=== PATIENT | male | born 1965 | race Caucasian/White ===

== ENCOUNTER 2023-02-14 06:46 | Day surgery (SDC) | payer OTHER ==
[~2023-02-14 06:46] MED LIST: Lactated Ringers 1,000 ML IV SCH
[2023-02-14] MEDS ORDERED: HYDROmorphone 1 MG/ML Syringe IVPUSH PRN (07:11)
[2023-02-14] MEDS ORDERED: Morphine 2 MG/ML SYRINGE IVPUSH PRN (07:11)
[2023-02-14] MEDS ORDERED: fentaNYL 50 MCG/ML SDV IVPUSH PRN (07:11)
[2023-02-14] MEDS ORDERED: Ondansetron 4 MG/2 ML SDV IVPUSH PRN (07:11)
[2023-02-14] MEDS ORDERED: Metoclopramide 10 MG/2 ML SDV IVPUSH PRN (07:11)
[2023-02-14] MEDS ORDERED: droPERidol 5 MG/2 ML SDV IVPUSH PRN (07:11)
[2023-02-14] MEDS ORDERED: Naloxone 0.4 MG/ML SDV IVPUSH PRN (07:11)
[2023-02-14] MEDS ORDERED: Albuterol 0.083% 2.5 MG/3 ML Neb Soln NEB PRN (07:11)
[2023-02-14] MEDS ORDERED: Bupivacaine 25%/EPINEPHrine/PF 30 ML ONE (07:31)
[2023-02-14] MEDS ORDERED: fentaNYL 100 MCG/2 ML SDV ONE (07:31)
[2023-02-14] MEDS ORDERED: Propofol 200 MG/20 ML SDV ONE (07:31)
[2023-02-14] MEDS ORDERED: ceFAZolin 2 GM in Sodium Chloride 0.9% 50 ML IV ONE (08:00)
[2023-02-14] MEDS ORDERED: HYDROmorphone 2 MG/ML Syringe ONE (08:25)
== END 2023-02-14 11:15 | disposition home or self-care (01) ==
LOC: MW.SDS 06:46
PROVIDERS: ATTEND Orthopaedic Surgery
DX: S83.242A Other tear of medial meniscus, current injury, left knee, initial encounter (principal); E11.9 Type 2 diabetes mellitus without complications; E78.5 Hyperlipidemia, unspecified; Z79.4 Long term (current) use of insulin; Z79.84 Long term (current) use of oral hypoglycemic drugs; Z79.899 Other long term (current) drug therapy; X58.XXXA Exposure to other specified factors, initial encounter
CPT/HCPCS: 29881; 82947; J1170; J2704; J3010; J7120; J3490